=== PATIENT | male | born 1975 | race Caucasian/White ===

== ENCOUNTER → 2017-02-19 | Outpatient (CLI) | payer SELFPAY ==
[2017-02-19 18:50] LABS: Basophils # (A) 0.1 k/uL (0-0.2); Basophils % (A) 1 %; CH 31.2; CHCM 33.9; Eosinophils # (A) 0.7 k/uL (0-0.7); Eosinophils % (A) 6 %; HCT 49.8 % (39.0-53.0); HGB 16.7 gm/dL (13.0-17.5); Luc # (Auto) 0.18; Luc % (Auto) 2; Lymphocytes # (A) 3.5 k/uL (1.0-4.8); Lymphocytes % (A) 31 %; MCH 31.1 pg (25.0-35.0); MCHC 33.6 g/dL (31.0-37.0); MCV 92.4 fL (80.0-100.0); Monocytes # (A) 0.5 k/uL (0-1.0); Monocytes % (A) 4 %; Neutrophils # (A) 6.4 k/uL (1.3-7.7); Neutrophils % (A) 56 %; RBC 5.39 m/uL (4.30-5.90); RDW 13.1 % (11.5-15.5); WBC 11.3 k/uL (3.8-10.6); WBC (Perox) 11.54
[2017-02-19 19:02] LABS: ALT 37 U/L (21-72); AST 21 U/L (17-59); Alkaline Phosphatase 80 U/L (38-126); Anion Gap 11 mmol/L; Blood Urea Nitrogen 23 mg/dL (9-20); Calcium 9.3 mg/dL (8.4-10.2); Carbon Dioxide 22 mmol/L (22-30); Chloride 108 mmol/L (98-107); Cholesterol 205 mg/dL (<200); Glucose 98 mg/dL (74-99); HDL Cholesterol 42 mg/dL (40-60); Non-African American GFR(MDRD) >60 (>60 ml/min/1.73 sqM); Potassium 4.4 mmol/L (3.5-5.1); Sodium 141 mmol/L (137-145); Total Bilirubin 0.4 mg/dL (0.2-1.3); Total Protein 7.3 g/dL (6.3-8.2); Triglycerides 234 mg/dL (<150)
[2017-02-19 19:04] LABS: Rheumatoid Factor, Qnt <9 IU/mL (<12)
== END ==
LOC: MMGSC 17:14
PROVIDERS: ATTEND Family Medicine
DX: Z00.00 Encounter for general adult medical examination without abnormal findings (principal); N52.9 Male erectile dysfunction, unspecified
CPT/HCPCS: 36415; 80053; 80061; 84403; 84439; 84443; 85025; 86038; 86431

== ENCOUNTER → 2017-03-07 | Outpatient (CLI) | payer OTHER ==
--- NOTE | 2017-03-07 16:39 | XR ---
EXAMINATION TYPE: XR lumbar spine 2 or 3V DATE OF EXAM: 03/07/2017 4:27 PM COMPARISON: NONE HISTORY: Back pain TECHNIQUE: 3 views FINDINGS: Vertebra have normal spacing and alignment. Posterior elements are intact. Sacroiliac joint s appear normal. IMPRESSION: Normal lumbar spine.
--- NOTE | 2017-03-07 16:40 | XR ---
EXAMINATION TYPE: XR chest 2V DATE OF EXAM: 03/07/2017 4:27 PM COMPARISON: NONE HISTORY: Cough TECHNIQUE: Frontal and lateral views of the chest are obtained. FINDINGS: Heart and mediastinum are normal. Lungs are clear. Diaphragm is normal. Bony thorax is int act. There is a small linear density at the posterior lung base on the lateral view. IMPRESSION: Focal atelectasis at the right posterior lung base. Normal heart.
== END | disposition home or self-care (01) ==
LOC: RADXRMAIN 16:11
PROVIDERS: ATTEND Family Medicine
DX: J98.11 Atelectasis (principal); M54.5 Low back pain
CPT/HCPCS: 71020; 72100

== ENCOUNTER → 2017-06-24 | Outpatient (CLI) | payer OTHER ==
[2017-06-24 19:29] LABS: Hepatitis B Surface Ag Index 0.06
[2017-06-24 19:35] LABS: Hepatitis B Core IgM Index 0.04
[2017-06-24 19:46] LABS: Hepatitis C Virus IgG Ab Negative (Negative); Hepatitis C Virus IgG Index 0.02
[2017-06-25 01:01] LABS: Treponemal Ab Non-Reactive (Non-Reactive)
== END | disposition home or self-care (01) ==
LOC: MMGSC 16:57
PROVIDERS: ATTEND Family Medicine
DX: Z03.89 Encounter for observation for other suspected diseases and conditions ruled out (principal)
CPT/HCPCS: 36415; 80074; 86780; 87390; 87491; 87591

== ENCOUNTER 2018-01-06 07:33 | Observation (INO) | payer OTHER ==
[2018-01-06] MEDS ORDERED: ONDANSETRON 4 MG/2 ML VIAL IVP STA (08:03)
[2018-01-06] MEDS ORDERED: SODIUM CHLORIDE 0.9% 1,000 ML IV STA (08:03)
[2018-01-06 08:14] LABS: Basophils # (A) 0.1 k/uL (0-0.2); Basophils % (A) 1 %; Eosinophils # (A) 0.9 k/uL (0-0.7); Eosinophils % (A) 8 %; HCT 50.6 % (39.0-53.0); HGB 16.9 gm/dL (13.0-17.5); Lymphocytes # (A) 2.2 k/uL (1.0-4.8); Lymphocytes % (A) 20 %; MCH 29.9 pg (25.0-35.0); MCHC 33.3 g/dL (31.0-37.0); MCV 89.8 fL (80.0-100.0); Mean Platelet Volume 7.7; Monocytes # (A) 0.5 k/uL (0-1.0); Monocytes % (A) 4 %; Neutrophils # (A) 7.3 k/uL (1.3-7.7); Neutrophils % (A) 66 %; Platelet Count 284 k/uL (150-450); RBC 5.64 m/uL (4.30-5.90); RDW 12.8 % (11.5-15.5); WBC 11.1 k/uL (3.8-10.6)
[2018-01-06 08:28] LABS: ALT 32 U/L (21-72); AST 16 U/L (17-59); Albumin 4.2 g/dL (3.5-5.0); Alcohol <10 mg/dL; Alkaline Phosphatase 80 U/L (38-126); Amylase 58 U/L (30-110); Anion Gap 10 mmol/L; Blood Urea Nitrogen 22 mg/dL (9-20); Calcium 9.6 mg/dL (8.4-10.2); Carbon Dioxide 24 mmol/L (22-30); Chloride 108 mmol/L (98-107); Glucose 151 mg/dL (74-99); Lipase 91 U/L (23-300); Potassium 4.4 mmol/L (3.5-5.1); Sodium 142 mmol/L (137-145); Total Bilirubin 0.3 mg/dL (0.2-1.3); Total Protein 6.9 g/dL (6.3-8.2)
--- NOTE | 2018-01-06 08:33 | ED ---
Abdominal Pain HPI - General Chief Complaint: Abdominal Pain Stated Complaint: Abdominal pain Time Seen by Provider: 01/06/18 08:02 Source: patient, RN notes reviewed Mode of arrival: ambulatory Limitations: no limitations - History of Present Illness Initial Comments: 42-year-old male presents emergency Department with chief complaint of abdominal pain. Patient states that this has been present on and off for last few days. Patient states he's been nauseated with intermittent vomiting. Patient denies any fever or chills. Patient states the pain is in grandparents his abdomen is not localize. Patient denies as reflux. Patient denies any chest pain or shortness breath at this time. He does complain of left arm numbness but states his been ongoing that it comes and goes it's not constant and varies in location. Patient is right-hand dominant. Denies any focal weakness. Patient denies any dysuria, hematuria, diarrhea, constipation, melena or hematochezia. Patient denies any sick contacts. Patient did state the triage that he has had thoughts of suicide to wonder what it would be like states that he's never acted upon that he is not really suicidal - Related Data Home Medications Medication Instructions Recorded Confirmed No Known Home Medications [No 01/06/18 01/06/18 Known Home Medications] Allergies Allergy/AdvReac Type Severity Reaction Status Date / Time No Known Allergies Allergy Verified 01/06/18 08:23 Review of Systems ROS Statement: Those systems with pertinent positive or pertinent negative responses have been documented in the HPI. ROS Other: All systems not noted in ROS Statement are negative. Past Medical History Past Medical History: No Reported History History of Any Multi-Drug Resistant Organisms: None Reported Past Surgical History: No Surgical Hx Reported Past Psychological History: ADD/ADHD, Anxiety, Depression, Panic Disorder Smoking Status: Current every day smoker Past Alcohol Use History: Rare Past Drug Use History: None Reported General Exam Limitations: no limitations General appearance: alert, in no apparent distress Head exam: Present: atraumatic, normocephalic, normal inspection Eye exam: Present: normal appearance, PERRL, EOMI. Absent: scleral icterus, conjunctival injection, periorbital swelling ENT exam: Present: normal exam, normal oropharynx, mucous membranes moist, TM's normal bilaterally, normal external ear exam Neck exam: Present: normal inspection, full ROM. Absent: tenderness, meningismus, lymphadenopathy Respiratory exam: Present: normal lung sounds bilaterally. Absent: respiratory distress, wheezes, rales, rhonchi, stridor Cardiovascular Exam: Present: regular rate, normal rhythm, normal heart sounds. Absent: systolic murmur, diastolic murmur, rubs, gallop, clicks GI/Abdominal exam: Present: soft, tenderness (Mild diffuse), normal bowel sounds. Absent: distended, guarding, rebound, rigid Extremities exam: Present: normal inspection, full ROM, normal capillary refill , other (Neurovascular intact). Absent: tenderness, pedal edema, joint swelling , calf tenderness Back exam: Absent: CVA tenderness (R), CVA tenderness (L) Skin exam: Present: warm, dry, intact, normal color. Absent: rash Course Vital Signs 01/06/18 01/06/18 07:34 10:24 Temperature 97.4 F L Pulse Rate 106 H 85 Respiratory 18 18 Rate Blood Pressure 122/95 118/71 O2 Sat by Pulse 96 96 Oximetry Medical Decision Making - Medical Decision Making 42-year-old male present emergency department for abdominal pain. Patient CT shows possible early lymphoma, vasculitis or panniculitis. Patient will be admitted to medicine with consult surgery. Patient does have some underlying depression may need to see psych he is not currently suicidal he states that he' s had some thoughts in the past. - Lab Data Result diagrams: 01/06/18 08:02 01/06/18 08:02 Lab Results 01/06/18 01/06/18 01/06/18 Range/Units 08:02 08:02 08:02 WBC 11.1 H (3.8-10.6) k/uL RBC 5.64 (4.30-5.90) m/uL Hgb 16.9 (13.0-17.5) gm/dL Hct 50.6 (39.0-53.0) % MCV 89.8 (80.0-100.0) fL MCH 29.9 (25.0-35.0) pg MCHC 33.3 (31.0-37.0) g/dL RDW 12.8 (11.5-15.5) % Plt Count 284 (150-450) k/uL Neutrophils % 66 % Lymphocytes % 20 % Monocytes % 4 % Eosinophils % 8 % Basophils % 1 % Neutrophils # 7.3 (1.3-7.7) k/uL Lymphocytes # 2.2 (1.0-4.8) k/uL Monocytes # 0.5 (0-1.0) k/uL Eosinophils # 0.9 H (0-0.7) k/uL Basophils # 0.1 (0-0.2) k/uL Sodium 142 (137-145) mmol/L Potassium 4.4 (3.5-5.1) mmol/L Chloride 108 H (98-107) mmol/L Carbon Dioxide 24 (22-30) mmol/L Anion Gap 10 mmol/L BUN 22 H (9-20) mg/dL Creatinine 0.76 (0.66-1.25) mg/dL Est GFR (CKD-EPI)AfAm >90 (>60 ml/min/1.73 sqM) Est GFR (CKD-EPI)NonAf >90 (>60 ml/min/1.73 sqM) Glucose 151 H (74-99) mg/dL Calcium 9.6 (8.4-10.2) mg/dL Total Bilirubin 0.3 (0.2-1.3) mg/dL AST 16 L (17-59) U/L ALT 32 (21-72) U/L Alkaline Phosphatase 80 (38-126) U/L Total Creatine Kinase 61 (55-170) U/L CK-MB (CK-2) 0.6 (0.0-2.4) ng/mL CK-MB (CK-2) Rel Index 1.0 Troponin I <0.012 (0.000-0.034) ng/mL Total Protein 6.9 (6.3-8.2) g/dL Albumin 4.2 (3.5-5.0) g/dL Amylase 58 (30-110) U/L Lipase 91 (23-300) U/L Urine Color Urine Appearance (Clear) Urine pH (5.0-8.0) Ur Specific Cement (1.001-1.035) Urine Protein (Negative) Urine Glucose (UA) (Negative) Urine Ketones (Negative) Urine Blood (Negative) Urine Nitrite (Negative) Urine Bilirubin (Negative) Urine Urobilinogen (<2.0) mg/dL Ur Leukocyte Esterase (Negative) Urine Opiates Screen (NotDetected) Ur Oxycodone Screen (NotDetected) Urine Methadone Screen (NotDetected) Ur Propoxyphene Screen (NotDetected) Ur Barbiturates Screen (NotDetected) U Tricyclic Antidepress (NotDetected) Ur Phencyclidine Scrn (NotDetected) Ur Amphetamines Screen (NotDetected) U Methamphetamines Scrn (NotDetected) U Benzodiazepines Scrn (NotDetected) Urine Cocaine Screen (NotDetected) U Marijuana (THC) Screen (NotDetected) Serum Alcohol <10 mg/dL 01/06/18 Range/Units 08:08 WBC (3.8-10.6) k/uL RBC (4.30-5.90) m/uL Hgb (13.0-17.5) gm/dL Hct (39.0-53.0) % MCV (80.0-100.0) fL MCH (25.0-35.0) pg MCHC (31.0-37.0) g/dL RDW (11.5-15.5) % Plt Count (150-450) k/uL Neutrophils % % Lymphocytes % % Monocytes % % Eosinophils % % Basophils % % Neutrophils # (1.3-7.7) k/uL Lymphocytes # (1.0-4.8) k/uL Monocytes # (0-1.0) k/uL Eosinophils # (0-0.7) k/uL Basophils # (0-0.2) k/uL Sodium (137-145) mmol/L Potassium (3.5-5.1) mmol/L Chloride (98-107) mmol/L Carbon Dioxide (22-30) mmol/L Anion Gap mmol/L BUN (9-20) mg/dL Creatinine (0.66-1.25) mg/dL Est GFR (CKD-EPI)AfAm (>60 ml/min/1.73 sqM) Est GFR (CKD-EPI)NonAf (>60 ml/min/1.73 sqM) Glucose (74-99) mg/dL Calcium (8.4-10.2) mg/dL Total Bilirubin (0.2-1.3) mg/dL AST (17-59) U/L ALT (21-72) U/L Alkaline Phosphatase (38-126) U/L Total Creatine Kinase (55-170) U/L CK-MB (CK-2) (0.0-2.4) ng/mL CK-MB (CK-2) Rel Index Troponin I (0.000-0.034) ng/mL Total Protein (6.3-8.2) g/dL Albumin (3.5-5.0) g/dL Amylase (30-110) U/L Lipase (23-300) U/L Urine Color Yellow Urine Appearance Clear (Clear) Urine pH 6.0 (5.0-8.0) Ur Specific Cement 1.024 (1.001-1.035) Urine Protein Negative (Negative) Urine Glucose (UA) Negative (Negative) Urine Ketones Negative (Negative) Urine Blood Negative (Negative) Urine Nitrite Negative (Negative) Urine Bilirubin Negative (Negative) Urine Urobilinogen <2.0 (<2.0) mg/dL Ur Leukocyte Esterase Negative (Negative) Urine Opiates Screen Not Detected (NotDetected) Ur Oxycodone Screen Not Detected (NotDetected) Urine Methadone Screen Not Detected (NotDetected) Ur Propoxyphene Screen Not Detected (NotDetected) Ur Barbiturates Screen Not Detected (NotDetected) U Tricyclic Antidepress Not Detected (NotDetected) Ur Phencyclidine Scrn Not Detected (NotDetected) Ur Amphetamines Screen Not Detected (NotDetected) U Methamphetamines Scrn Not Detected (NotDetected) U Benzodiazepines Scrn Not Detected (NotDetected) Urine Cocaine Screen Not Detected (NotDetected) U Marijuana (THC) Screen Not Detected (NotDetected) Serum Alcohol mg/dL - EKG Data EKG Comments: EKG performed at 8:17 normal sinus rhythm with rate 93 IL 112 QRS 88 QT/QTC 320/ 397 Disposition Clinical Impression: Abdominal pain, Panniculitis, Vasculitis, Nausea & vomiting, Depression Disposition: ADMITTED IP TO THIS [facility] Condition: Stable Referrals: Jeannine Reina MD [Primary Care Provider] - 1-2 days
[2018-01-06 08:34] LABS: Creatine Kinase 61 U/L (55-170)
[2018-01-06 08:40] LABS: Appearance,Urine Clear (Clear); Bilirubin,Urine Negative (Negative); Blood,Urine Negative (Negative); Color,Urine Yellow; Glucose,Urine (UA) Negative (Negative); Ketones,Urine Negative (Negative); Leukocyte Esterase,Urine Negative (Negative); Nitrite,Urine Negative (Negative); Protein,Urine Negative (Negative); Specific Gravity,Urine 1.024 (1.001-1.035); Urobilinogen,Urine <2.0 mg/dL (<2.0)
[2018-01-06 08:47] LABS: Creatine Kinase MB 0.6 ng/mL (0.0-2.4); Troponin I <0.012 ng/mL (0.000-0.034)
[2018-01-06 08:50] LABS: Amphetamine Screen,Urine Not Detected (NotDetected); Barbiturate Screen,Urine Not Detected (NotDetected); Benzodiazepines Screen,Urine Not Detected (NotDetected); Cocaine Screen,Urine Not Detected (NotDetected); Methadone Screen, Urine Not Detected (NotDetected); Opiate Screen,Urine Not Detected (NotDetected); Oxycodone Screen, Urine Not Detected (NotDetected); Phencyclidine Screen,Urine Not Detected (NotDetected); Tricyclic Antidepressant,Urine Not Detected (NotDetected); Urn Cannabinoid Scrn Not Detected (NotDetected)
[2018-01-06] MEDS ORDERED: RX INFO: IV CONTRAST WAS GIVEN 1 EACH MISC MISCELLANE PRN (08:51)
--- NOTE | 2018-01-06 10:00 | CT ---
EXAMINATION TYPE: CT abdomen pelvis w con DATE OF EXAM: 01/06/2018 COMPARISON: NONE HISTORY: 42-year-old male with abdominal pain, vomiting TECHNIQUE: Contiguous axial scanning of the abdomen and pelvis following administration of 100 ml Omn ipaque 300 IV contrast. Delayed images through the kidneys and coronal/sagittal reconstructions perf ormed. CT DLP: 1069.5 mGycm Automated exposure control for dose reduction was used. FINDINGS: Heart is normal size without pericardial effusion. Calcified granuloma posterior right lower lobe. St bret dependent atelectasis posterior left lower lobe. Subcentimeter hypodensity anterior mid liver to small fractured CT characterization, probable cyst. Liver mildly enlarged at 17.3 cm craniocaudal. There is slight heterogeneous low density appearance t o the liver which could reflect hepatitis or fatty infiltration and should be correlated clinically. Portal venous system is patent. No biliary ductal dilatation. Gallbladder, right adrenal gland, right kidney, and pancreas appear within normal limits. Subcentimet er hypodensity medial upper pole right kidney too small for accurate CT characterization, likely cyst . Spleen shows an inferior hilar splenule and is upper limits of normal in size at 13.6 cm craniocaudal , coronal image 64. Mild thickening of the left adrenal gland without discrete nodularity. No dilated small bowel, free fluid, or free air. There may be mild wall thickening of jejunal loops in the left abdomen. There is focal soft tissue thickening along left upper to mid abdominal mesenteric vessels, refer to axial image 28 and coronal image 38. Otherwise, no mesenteric or retroperitoneal lymphadenopathy. Normal appendix. Mild stool burden. No pericolonic inflammatory change. Bladder is urine distended. No abnormal fluid collection in the pelvis or pelvic lymphadenopathy. Bones: Facet arthropathy lower lumbar spine and mild degenerative disc disease lower thoracic spine. No osseous destructive process. IMPRESSION: 1. PERIVASCULAR SOFT TISSUE THICKENING INVOLVING MESENTERIC VESSELS TO THE LEFT UPPER AND MID ABDOMEN (AXIAL IMAGE 28, CORONAL IMAGE 38). A MEDIUM VESSEL VASCULITIS, MESENTERIC PANNICULITIS, AND EARLY L YMPHOMA ARE SOME DIFFERENTIAL CONSIDERATIONS. FURTHER CLINICAL EVALUATION AND FOLLOW-UP IN 3 MONTHS I S RECOMMENDED. 2. MILD HEPATOMEGALY. SLIGHTLY HETEROGENEOUS ENHANCEMENT OF THE LIVER COULD REFLECT UNDERLYING FATTY INFILTRATION OR HEPATITIS. CORRELATE WITH LFT's, LIPID PROFILE, AND PATIENT RISK FACTORS.
[2018-01-06] MEDS ORDERED: KETOROLAC 30 MG/ML 1 ML VIAL IVP STA (10:30)
[2018-01-06] MEDS ORDERED: ONDANSETRON 4 MG/2 ML VIAL IVP PRN (10:34)
[2018-01-06] MEDS ORDERED: ACETAMINOPHEN TAB 325 MG TAB PO PRN (10:34)
--- NOTE | 2018-01-06 12:05 | P.HPIM ---
History of Present Illness H&P Date: 01/06/18 Chief Complaint: Abdominal pain nausea vomiting 42-year-old male with no past medical history presents emergency Department with chief complaint of abdominal pain for the last 5 days. Patient states that this has been present intermittently since Wednesday. Patient states he's been nauseated with intermittent vomiting. Patient denies any fever or chills. Patient states the pain is generalized and poorly localized often with radiation to his back. Patient denies as reflux. Patient denies any chest pain or shortness breath at this time. He does complain of left arm numbness but states his been ongoing that it comes and goes it's not constant and varies in location. Patient is right-hand dominant. Denies any focal weakness. Patient denies any dysuria, hematuria, diarrhea, constipation, melena or hematochezia. Patient denies any sick contacts. The patient reports increasing anorexia since Wednesday with a 10-12 pound weight loss also reporting subjective fevers and chills. He does have a family history of breast cancer in his mother. The patient has a 30+ pack year history. Patient did state the triage that he has had thoughts of suicide to wonder what it would be like states that he's never acted upon that he is not really suicidal. Review of Systems All other 14 point review of systems negative except per HPI Past Medical History Past Medical History: No Reported History History of Any Multi-Drug Resistant Organisms: None Reported Past Surgical History: No Surgical Hx Reported Past Psychological History: ADD/ADHD, Anxiety, Depression, Panic Disorder Smoking Status: Current every day smoker Past Alcohol Use History: Rare Past Drug Use History: None Reported - Past Family History Father Family Medical History: Coronary Artery Disease (CAD), Hypertension, Renal Disease Additional Family Medical History / Comment(s): Father has CKD and they are talking of starting him on dialysis. Mother Family Medical History: Cancer Additional Family Medical History / Comment(s): Mother of breast cancer with mets. Medications and Allergies Home Medications Medication Instructions Recorded Confirmed Type No Known Home Medications [No 01/06/18 01/06/18 History Known Home Medications] Allergies Allergy/AdvReac Type Severity Reaction Status Date / Time No Known Allergies Allergy Verified 01/06/18 08:23 Physical Exam Vitals: Vital Signs Temp Pulse Resp BP Pulse Ox 01/06/18 10:24 85 18 118/71 96 01/06/18 07:34 97.4 F L 106 H 18 122/95 96 Intake and Output 01/05/18 01/06/18 01/06/18 22:59 06:59 14:59 Other: Weight 88.451 kg Constitutional: No acute distress, conversant, pleasant Eyes: Anicteric sclerae, moist conjunctiva, no lid-lag, PERRLA ENMT: NC/AT,Oropharynx clear, no erythema, exudates Neck:Supple, FROM, no masses, or JVD, No carotid bruits; No thyromegaly Lungs: Clear to auscultation, Clear to percussion, Normal respiratory effort, no accessory muscle use Cardiovascular: Heart regular in rate and rhythm, No murmurs, gallops, or rubs no peripheral edema Abdominal: Soft tender to palpation diffusely, non distended, no guarding, no rebound or rigidity, Normoactive bowel sounds No hepatomegaly, No splenomegaly , No palpable mass No abdominal wall hernia noted Skin: Normal temperature, tone, texture, turgor, No induration No subcutaneous nodules, No rash, lesions, No ulcers Extremities:No digital cyanosis No clubbing, Pedal pulses intact and symmetrical Radial pulses intact and symmetrical Normal gait and station, No calf tenderness Psychiatric: Alert and oriented to person, place and time, Appropriate affect Intact judgement Neuro: Muscles Strength 5/5 in all 4 extremities, Sensation to light touch grossly present throughout, Cranial nerves II-XII grossly intact. No focal sensory deficits Results CBC & Chem 7: 01/06/18 08:02 01/06/18 08:02 Labs: Abnormal Lab Results - Last 24 Hours (Table) 01/06/18 01/06/18 Range/Units 08:02 08:02 WBC 11.1 H (3.8-10.6) k/uL Eosinophils # 0.9 H (0-0.7) k/uL Chloride 108 H (98-107) mmol/L BUN 22 H (9-20) mg/dL Glucose 151 H (74-99) mg/dL AST 16 L (17-59) U/L CT scan - abdomen: report reviewed (Perivascular soft tissues thickening involving the mesenteric vessels to the left upper and mid abdomen. Differential includes a medium vessel vasculitis, mesenteric panniculitis and early lymphoma. Follow-up in 3 months recommended) Assessment and Plan (1) Abdominal pain Current Visit: Yes Status: Acute Code(s): R10.9 - UNSPECIFIED ABDOMINAL PAIN SNOMED Code(s): 87112423 (2) Nausea & vomiting Current Visit: Yes Status: Acute Code(s): R11.2 - NAUSEA WITH VOMITING, UNSPECIFIED SNOMED Code(s): 36107385 (3) Depression Current Visit: Yes Status: Acute Code(s): F32.9 - MAJOR DEPRESSIVE DISORDER , SINGLE EPISODE, UNSPECIFIED SNOMED Code(s): 38073480 (4) Smoking Current Visit: Yes Status: Acute Code(s): F17.200 - NICOTINE DEPENDENCE, UNSPECIFIED, UNCOMPLICATED SNOMED Code(s): 28006682 Plan: The patient is placed on observation anticipated less than 2 midnight stay with abdominal pain and nausea and vomiting, with a nonsurgical abdomen at this time. CT abdomen and pelvis suggesting lymphoma versus vasculitis versus panniculitis , will consult general surgery for further recommendations, treat supportively with antiemetics and IV morphine, the patient does have a mild leukocytosis but has been afebrile. If He does become febrile will add broad- spectrum antibiotics. We'll also consult psychiatry regarding his depression. We'll continue to follow his clinical course
[2018-01-06] MEDS: SODIUM CHLORIDE 0.9% 1,000 ML IV SCH (14:03)
[2018-01-06] MEDS: NICOTINE 14MG/24HR PATCH TRANSDERM SCH (14:03)
[2018-01-06 14:08] VITALS: BMI 27.1
[2018-01-06] MEDS: MORPHINE SULFATE 4 MG/ML SYRINGE IVP PRN ×2 (16:40→22:14)
[2018-01-07 01:47] VITALS: RESP 16
[2018-01-07] MEDS: SODIUM CHLORIDE 0.9% 1,000 ML IV SCH ×3 (03:14→13:03)
[2018-01-07] MEDS: NICOTINE 14MG/24HR PATCH TRANSDERM SCH (08:30)
[2018-01-07] MEDS: MORPHINE SULFATE 4 MG/ML SYRINGE IVP PRN ×2 (08:30→14:25)
--- NOTE | 2018-01-07 09:42 | P.GSCN ---
History of Present Illness Consult date: 01/07/18 Reason for Consult: Abdominal pain History of present illness: 42-year-old male presented on the day of admission to the emergency room with a chief complaint of persistent abdominal pain onset Wednesday. Given the above clinical presentation a surgical eval was requested. Patients being seen this morning and states that the abdominal pain is in the bilateral lower abdominal area points to this areas as to the reference point. states it's constant sometimes it's not as bad and other times it's very intense as if somebody is "stabbing me". Patient denies any change in bowel habits any burning on urination frequency urgency. No blood in stool. No hematuria. Patient denied any fever chills. CAT scan abdomen pelvis with contrast done in the emergency room reviewing the report showed mild hepatomegaly. Medium vessel vasculitis, mesenteric panniculitis an early lymphoma are some differentials to be considered. Patient 's abdomen is flat not distended mild tenderness bilateral lower abdomen no facial grimacing with palpitation to the abdominal wall tolerating a clear liquid diet with no nausea no vomiting no stool No acute finding. Patient has no surgical history and no significant past medical history Denies alcohol use Review of Systems All systems: negative - EENT Eyes: denies blurred vision, denies bulging eye, denies decreased vision, denies diplopia, denies discharge, denies dry eye, denies irritation, denies itching, denies pain, denies photophobia, denies loss of peripheral vision, denies loss of vision, denies tunnel vision/blind spots Ears: deny: decreased hearing, ear discharge, earache, tinnitus Ears, nose, mouth and throat: Reports as per HPI - Cardiovascular Denies chest pain, Denies shortness of breath Past Medical History Past Medical History: No Reported History History of Any Multi-Drug Resistant Organisms: None Reported Past Surgical History: No Surgical Hx Reported Past Anesthesia/Blood Transfusion Reactions: Unable to Obtain Additional Past Anesthesia/Blood Transfusion Reaction / Comm: Pt has never had anesthesia. Past Psychological History: ADD/ADHD, Anxiety, Depression, Panic Disorder Smoking Status: Current every day smoker Past Alcohol Use History: Rare Past Drug Use History: None Reported - Past Family History Father Family Medical History: Coronary Artery Disease (CAD), Hypertension, Renal Disease Additional Family Medical History / Comment(s): Father has CKD and they are talking of starting him on dialysis. Mother Family Medical History: Cancer Additional Family Medical History / Comment(s): Mother of breast cancer with mets. Medications and Allergies Home Medications Medication Instructions Recorded Confirmed Type No Known Home Medications [No 01/06/18 01/06/18 History Known Home Medications] Allergies Allergy/AdvReac Type Severity Reaction Status Date / Time No Known Allergies Allergy Verified 01/06/18 08:23 Surgical - Exam Vital Signs Temp Pulse Resp BP Pulse Ox 97.4 F L 106 H 18 122/95 96 01/06/18 07:34 01/06/18 07:34 01/06/18 07:34 01/06/18 07:34 01/06/18 07:34 GENERAL APPEARANCE: 42-year-old male resting comfortably in bed and just received pain medication currently denying abdominal pain when questioning patient is alert, oriented, in no acute distress. VITAL SIGNS: Reviewed HEENT: Head is normocephalic and atraumatic. Pupils are equal and reactive. The nares are patent. Oropharynx is clear without lesions. NECK: Supple without lymphadenopathy. Traches midline. HEART: S1, S2. Regular rate and rhythm. No murmur noted denying chest pain LUNGS: No crackles or wheezes are heard. Adequate air movement bilaterally no cough noted no shortness of breath noted ABDOMEN: Soft, nontender, nondistended with good bowel sounds. No peritoneal signs. No palpable organomegaly or masses. No nausea no vomiting no difficulty in urinating no stool tolerating clear liquid diet EXTREMITIES: Normal skin color and turgor. No cyanosis, rash, ulceration, clubbing or edema. Radial pedal pulses are 2/4 bilaterally. NEUROLOGICAL: No focal deficits. Strength and sensation are grossly intact. Results - Labs 01/06/18 08:02 01/06/18 08:02 Assessment and Plan Assessment: Impression Present on admission abdominal pain with a CAT scan abdomen showing perivascular soft tissue thickening involving mesenteric vessels to the left upper and mid abdomen Depressive disorder nonspecified The current active smoker Present on admission abdominal pain with nausea vomiting Present on admission mild leukocytosis afebrile suspect reactive Plan No evidence of an acute surgical abdomen IV fluid for hydration Monitor labs Anti-emetics as ordered Pain control Will follow with you with further surgical recommendations Check hepatitis panel Surgical consultation note dictated for dr maxwell The above impression and plan of care have been discussed and directed by signing physician. Marilyn Denny nurse practitioner acting as scribe for signing physician.
--- NOTE | 2018-01-07 12:26 | XR ---
EXAMINATION TYPE: XR chest 2V DATE OF EXAM: 01/07/2018 COMPARISON: 03/07/2017 HISTORY: Chest pain TECHNIQUE: Frontal and lateral views of the chest are obtained. FINDINGS: There is no focal air space opacity. No evidence for pneumothorax. No pleural effusion. The cardiac silhouette size is within normal limits. The osseous structures are grossly intact. IMPRESSION: 1. No acute cardiopulmonary process.
--- NOTE | 2018-01-07 13:59 | P.PN ---
Subjective Progress Note Date: 01/07/18 Patient reporting resolution of his nausea and only reporting minimal abdominal pain today. Otherwise no fevers afebrile no acute events overnight Objective - Vital Signs Vital signs: Vital Signs Temp 98.4 F 01/07/18 08:18 Pulse 86 01/07/18 08:18 Resp 16 01/07/18 08:18 BP 118/74 01/07/18 08:18 Pulse Ox 93 L 01/07/18 08:18 Intake & Output 01/06/18 01/07/18 01/07/18 18:59 06:59 18:59 Intake Total 1340 100 Balance 1340 100 Weight 88.451 kg Intake: Intake, IV Titration 1100 Amount Sodium Chloride 0.9% 1, 1100 000 ml @ 100 mls/hr IV . Q10H [facility] Rx#:[id number] Oral 240 100 Other: Voiding Method Toilet # Voids 1 1 1 - Exam Constitutional: No acute distress, conversant, pleasant Eyes: Anicteric sclerae, moist conjunctiva, no lid-lag, PERRLA ENMT: NC/AT,Oropharynx clear, no erythema, exudates Neck:Supple, FROM, no masses, or JVD, No carotid bruits; No thyromegaly Lungs: Clear to auscultation, Clear to percussion, Normal respiratory effort, no accessory muscle use Cardiovascular: Heart regular in rate and rhythm, No murmurs, gallops, or rubs no peripheral edema Abdominal: Soft Nontender, nom distended, no guarding, no rebound or rigidity, Normoactive bowel sounds No hepatomegaly, No splenomegaly, No palpable mass No abdominal wall hernia noted Skin: Normal temperature, tone, texture, turgor, No induration No subcutaneous nodules, No rash, lesions, No ulcers Extremities:No digital cyanosis No clubbing, Pedal pulses intact and symmetrical Radial pulses intact and symmetrical Normal gait and station, No calf tenderness Psychiatric: Alert and oriented to person, place and time, Appropriate affect Intact judgement Neuro: Muscles Strength 5/5 in all 4 extremities, Sensation to light touch grossly present throughout, Cranial nerves II-XII grossly intact. No focal sensory deficits - Labs CBC & Chem 7: 01/06/18 08:02 01/06/18 08:02 Assessment and Plan (1) Abdominal pain Narrative/Plan: * CT abdomen and pelvis suggesting lymphoma versus vasculitis versus panniculitis * Patient had a mild leukocytosis we'll check a CBC today, he has been afebrile since admission on likely to need antibiotics, and possibly some viral-type infection * Gen. surgery has been consulted awaiting further recommendations * We'll also consult hematology oncology for further recommendations Current Visit: Yes Status: Acute Code(s): R10.9 - UNSPECIFIED ABDOMINAL PAIN SNOMED Code(s): 50171447 (2) Nausea & vomiting Current Visit: Yes Status: Resolved Code(s): R11.2 - NAUSEA WITH VOMITING, UNSPECIFIED SNOMED Code(s): 35324102 (3) Depression Current Visit: Yes Status: Acute Code(s): F32.9 - MAJOR DEPRESSIVE DISORDER , SINGLE EPISODE, UNSPECIFIED SNOMED Code(s): 11869425 (4) Smoking Current Visit: Yes Status: Acute Code(s): F17.200 - NICOTINE DEPENDENCE, UNSPECIFIED, UNCOMPLICATED SNOMED Code(s): 89588601 Plan: The patient is placed on observation anticipated less than 2 midnight stay with abdominal pain and nausea and vomiting, with a nonsurgical abdomen at this time. , will consult general surgery for further recommendations, treat supportively with antiemetics and IV morphine, the patient does have a mild leukocytosis but has been afebrile. If He does become febrile will add broad-spectrum antibiotics. We'll also consult psychiatry regarding his depression. We'll continue to follow his clinical course
--- NOTE | 2018-01-07 14:38 | P.CN ---
Psychiatric Consult - . Consult date: 01/07/18 Consult:: 01/07/18 14:28 Identification: Patient is a 42-year-old male presented to the hospital with complaints of abdominal pains last 5 days, nausea and vomiting and decreased appetite. Reason for Consult: Consultation was requested for depression History of Present Illness: Patient's chart was reviewed, I spoke with the patient in his room no other members were present initially his fiance was present at the end of the interview. Patient states that he is not currently depressed and wondered why a psychiatric consultation was requested. He reported to me that he is not feeling depressed nor has he had any current suicidal thoughts. He states in 2013 was going through a contentious divorce he was treated for symptoms of anxiety, not being able to sleep or eat well by his family physician. He states at that time he had suicidal thoughts but had never made any plans and had no intent to act. He states his primary care physician gave him Vyvanse and Xanax and he took them for 6 months and received no psychiatric counseling and stopped the medications. He states that he has had suicidal thoughts in the past with no plan or intent to act when he's been upset or very sad. He reports that he has never made a suicide attempt and has never had any intention to act on his thoughts nor has he ever thought about how to commit suicide. States that several weeks ago he had a difficult visit with his 13-year-old daughter. The 2 of them were arguing about his insisting she take a shower and the 2 of them have not spoken for the last month nor have they visited with each other. He states this was their first big argument and it was upsetting to him. Patient is currently anxious regarding his current medical situation but states he is not depressed and not suicidal. Patient does not endorse a history of manic symptoms, anxiety symptoms OCD symptoms. Patient has never had any symptoms of a psychotic disorder. Patient states that the only time he was in treatment was during a contentious divorce. Past Psychiatric History: Patient has no inpatient psychiatric history has never been seen by a psychiatrist and was treated by his primary care physician for symptoms of anxiety and depression during a contentious divorce Past Medical/Surgical History: Patient states that he has no current medical problems and no prior surgical history Family History: Patient is unaware of any psychiatric history in the family and states his father used alcohol when he was much younger but stopped many years ago. There is no history of completed suicides in the family Social History: Patient was born in [place] and raised in [place] and return to [place] he was 18 years of age. His parents were and his mother in 2008, his father is alive. Patient has 2 brothers and 4 sisters all of whom he is in contact with. Patient has been on 3 occasions in the past. He was from his first 2 wives and states that he is from his third but not yet . He has a 13-year-old daughter from his second marriage. He is currently living with his fiance. 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 Patient states his daughter visits every other weekend and his fiance's son is with them 50% of the time. Patient denies any abuse history. Substance Use History: Patient states he drinks 3 beers a year and has never used any drugs in the past or currently and states he's never used more alcohol than that in the past. Patient does smoke cigarettes. Legal History: Patient denies any legal history. Mental status: Appearance/Attitude: Patient is lying in a hospital bed in no acute distress, makes good eye contact and is cooperative Behavior: Patient does not exhibit any psychomotor agitation or retardation. Speech/Language: Patient's speech is spontaneous and normal volume and rhythm and he is coherent. Thought Process: Patient is goal-directed there is no evidence of circumstantial or tangential thought and he is not exhibiting any loose associations or flight of ideas Thought Content: Patient denies any auditory or visual hallucinations, no evidence of paranoid or delusional ideation. Patient states that he is anxious about his current medical problem. He reports that his appetite has improved and he is actually feeling hungry now. Patient denied feeling hopeless and helpless or despondent. Patient is anxious about a recent argument that he had with his daughter and their lack of communication over the last several weeks. Suicidal/Homicidal Ideation: Patient denies any current suicidal or homicidal ideation. Sensorium/Cognition: Patient is alert and oriented to person, place, and time and his recent and remote memory are grossly intact. Mood/Affect: Patient's mood is pleasant, slightly anxious and his affect is appropriate Insight/Judgment: Patient's insight and judgment are intact Assessment: Patient reports that he is anxious about his current medical condition, states that he also recently had his first big argument with his 13- year-old daughter and is upset that she has not visited him again and they have not been able to speak on the phone. Patient adamantly denies any current suicidal ideation and states that he has had suicidal thoughts in the past when he has been upset and sad but is never thought of a plan and has never had any intent to act nor any wish to act. Patient states that he is currently not depressed and was surprised by the request for a consultation. Diagnosis: No current psychiatric diagnosis Plan: Patient is currently not expressing any depressive symptoms, is not endorsing any symptoms of alverto, psychosis or anxiety. Patient states that he has had the past thoughts of suicide without a plan or intent to act but is not currently having any suicidal ideation. Patient states he is anxious about his current medical problems as there is no answer as to why he was having the abdominal pain. At this time I see no reason to begin any psychotropic medication. I will sign off the case if there are any further questions or concerns please don't hesitate to contact me.
[2018-01-07 14:42] LABS: Basophils # (A) 0.1 k/uL (0-0.2); Basophils % (A) 1 %; Eosinophils % (A) 11 %; HCT 47.1 % (39.0-53.0); HGB 15.6 gm/dL (13.0-17.5); Lymphocytes # (A) 2.6 k/uL (1.0-4.8); Lymphocytes % (A) 26 %; MCH 29.9 pg (25.0-35.0); MCHC 33.1 g/dL (31.0-37.0); MCV 90.4 fL (80.0-100.0); Mean Platelet Volume 7.6; Monocytes # (A) 0.3 k/uL (0-1.0); Monocytes % (A) 3 %; Neutrophils # (A) 5.7 k/uL (1.3-7.7); Neutrophils % (A) 58 %; Platelet Count 258 k/uL (150-450); RBC 5.21 m/uL (4.30-5.90); RDW 12.7 % (11.5-15.5); WBC 9.8 k/uL (3.8-10.6)
[2018-01-07 14:58] LABS: ALT 25 U/L (21-72); AST 17 U/L (17-59); Albumin 3.7 g/dL (3.5-5.0); Alkaline Phosphatase 71 U/L (38-126); Anion Gap 6 mmol/L; Blood Urea Nitrogen 12 mg/dL (9-20); Carbon Dioxide 28 mmol/L (22-30); Chloride 107 mmol/L (98-107); Glucose 118 mg/dL (74-99); Potassium 4.4 mmol/L (3.5-5.1); Sodium 141 mmol/L (137-145); Total Bilirubin 0.2 mg/dL (0.2-1.3); Total Protein 6.3 g/dL (6.3-8.2)
[2018-01-07] MEDS ORDERED: RX INFO: IV CONTRAST WAS GIVEN 1 EACH MISC MISCELLANE PRN (16:16)
[2018-01-07 17:19] LABS: Hepatitis A Antibody IgM Non-Reactive (Non-Reactive); Hepatitis B Core IgM Non-Reactive (Non-Reactive)
[2018-01-07] MEDS: HYDROcodone/APAP 5-325MG 1 EACH TAB PO PRN (19:50)
[2018-01-07] MEDS ORDERED: MORPHINE ORAL SOLN 10 MG/5 ML CUP PO PRN (20:06)
--- NOTE | 2018-01-07 22:21 | CT ---
EXAMINATION TYPE: CT chest w con DATE OF EXAM: 01/07/2018 COMPARISON: NONE HISTORY: Adenopathy CT DLP: 665 mGycm. Automated exposure control for dose reduction was used. CONTRAST: CT scan of the chest is performed; patient injected intravenously with 100 mL of Omnipaque 300. FINDINGS: AIRWAYS: Negative. LUNG PARENCHYMA: There is hyperinflation, with attenuation of upper lobe vasculature consistent with emphysematous changes, moderate degree for patient's age. In the superior segment of the right lower lobe posteriorly there is ar 7.5 mm rounded calcification, consistent with healed granuloma. Bilatera l scattered linear bands of added opacity are noted, consistent with parenchymal scarring which is mo re prominent on the left PLEURAL SPACES: Negative. MEDIASTINUM: No pericardial effusion. No cardiomegaly. No coronary calcifications. Great vasculature unremarkable. No mediastinal adenopathy, but 1 cm mean diameter bilateral hilar nodes are noted. VISUALIZED EXTRATHORACIC STRUCTURES: No axillary or supraclavicular adenopathy. No other findings. SKELETAL STRUCTURES: Unremarkable. IMPRESSION: 1. MODERATE EMPHYSEMATOUS CHANGES AND PARENCHYMAL SCARRING. 2. BILATERAL 1 CM HILAR LYMPH NODES.
[2018-01-08 02:02] LABS: Rheumatoid Factor <4 IU/mL (0-15)
[2018-01-08 07:13] VITALS: BP 106/68; PULSE 74; TEMP 98
[2018-01-08] MEDS: SODIUM CHLORIDE 0.9% 1,000 ML IV SCH ×2 (07:16→11:49)
[2018-01-08] MEDS: NICOTINE 14MG/24HR PATCH TRANSDERM SCH (08:47)
[2018-01-08] MEDS: HYDROcodone/APAP 5-325MG 1 EACH TAB PO PRN (08:48)
--- NOTE | 2018-01-08 10:57 | P.PN ---
Progress Note - Text Progress Note Date: 01/08/18 The patient has no complaints this morning. He is tolerating regular diet. He has no abdominal pain. On exam is lesser stable. His evidence soft. Patient will be discharged home today. He'll follow up with myself in one week.
--- NOTE | 2018-01-08 12:33 | P.DS ---
Providers Date of admission: 01/06/18 10:34 Expected date of discharge: 01/08/18 Attending physician: Arsenio Boateng MD Consults: 01/06/18 12:07 Consult Physician Routine Consulting Provider: Angelito Ashraf Consult Reason/Comments: Abdominal pain Do you want consulting provider notified?: Yes 01/06/18 12:40 Consult Physician Routine Consulting Provider: Aneta Oshea Consult Reason/Comments: depression Do you want consulting provider notified?: Yes 01/07/18 13:40 Consult Physician Routine Consulting Provider: Joaquin Rodriguez Consult Reason/Comments: evaluate and treat if indicated Do you want consulting provider notified?: Yes Primary care physician: Jeannine Reina - Discharge Diagnosis(es) (1) Abdominal pain Current Visit: Yes Status: Acute (2) Nausea & vomiting Current Visit: Yes Status: Resolved (3) Smoking Current Visit: Yes Status: Acute (4) Verbalizes suicidal thoughts Current Visit: Yes Status: Acute Hospital Course: The patient is a 42-year-old male that presented with abdominal painin observation after his CT abdomen and pelvis showed perivascular soft tissue thickening involving the mesenteric vessels with a differential including medium vessel vasculitis, versus panniculitis versus early lymphoma. In general surgery Dr. Ashraf and Dr. Rodriguez with oncology were consulted. The patient was evaluated by general surgery and it was determined the patient had a nonsurgical abdomen at the patient had initially been made nothing by mouth and treated with antiemetics and IV morphine, his diet was advanced and he was tolerating a regular diet at time of discharge. Computed tomography scan of the chest dated suggest emphysematous changes with bilateral hilar lymphadenopathy at 1 cm. The patient was instructed to follow up with and his PCP in 1 week. The patient will likely need a pulmonary consult in the outpatient setting and monitoring with repeat CT scans the next 3 -6 months. The patient is stable at discharge today and is asymptomatic. This discharge process took approximately 25 minutes. Patient Condition at Discharge: Stable Plan - Discharge Summary Discharge Rx Participant: No New Discharge Prescriptions: Continue No Known Home Medications [No Known Home Medications] Discharge Medication List No Known Home Medications [No Known Home Medications] 01/06/18 [History] Follow up Appointment(s)/Referral(s): Jeannine Reina MD [Primary Care Provider] - 1-2 days Angelito Ashraf MD [STAFF PHYSICIAN] - 1 Week Discharge Disposition: HOME SELF-CARE
--- NOTE | 2018-01-11 00:01 | P.CONS ---
History of Present Illness - Reason for Consult Consult date: 01/07/[address] Requesting physician: Olayinka Borden - Chief Complaint Abdominal Pain - History of Present Illness 42-year-old male who denies any past medical history presents to ED with complaints of abdominal pain over the past few weeks Associated intermittent nausea and vomiting, no diarrhea. Patient denies any fever or chills. Pain is located in lower abdomen, intermittent. The patient is a current 30+ pack year history. A Ct scan revealed a soft tissue thickening the mesenteric vessels in the mid and left upper abdomen. These findings were concerning for differentials including an early stage lymphoma, therefore Oncology has been consulted. Fiance at bedside during time of consultation. He denies any abdominal pain in the area of upper and/or mid abdomen, pain is located in lower bilateral pelvis and radiates more to lower back. Review of Systems A 14 point review of systems assessed and completed and all negative except lower abdominal pain, nausea, and intermitted vomiting. He does also state he has had a recent 10LB weight loss, unintended All systems: negative Constitutional: Denies chills, Denies fever Eyes: denies blurred vision, denies pain Ears, nose, mouth and throat: Denies headache, Denies sore throat Cardiovascular: Denies chest pain, Denies shortness of breath Respiratory: Denies cough Gastrointestinal: Denies abdominal pain, Denies diarrhea, Denies nausea, Denies vomiting Musculoskeletal: Denies myalgias Integumentary: Denies pruritus, Denies rash Neurological: Denies numbness, Denies weakness Psychiatric: Denies anxiety, Denies depression Endocrine: Denies fatigue, Denies weight change Past Medical History Past Medical History: No Reported History History of Any Multi-Drug Resistant Organisms: None Reported Past Surgical History: No Surgical Hx Reported Past Anesthesia/Blood Transfusion Reactions: Unable to Obtain Additional Past Anesthesia/Blood Transfusion Reaction / Comm: Pt has never had anesthesia. Past Psychological History: ADD/ADHD, Anxiety, Depression, Panic Disorder Smoking Status: Current every day smoker Past Alcohol Use History: Rare Past Drug Use History: None Reported - Past Family History Father Family Medical History: Coronary Artery Disease (CAD), Hypertension, Renal Disease Additional Family Medical History / Comment(s): Father has CKD and they are talking of starting him on dialysis. Mother Family Medical History: Cancer Additional Family Medical History / Comment(s): Mother of breast cancer with mets. Medications and Allergies Home Medications Medication Instructions Recorded Confirmed Type No Known Home Medications [No 01/06/18 01/06/18 History Known Home Medications] Allergies Allergy/AdvReac Type Severity Reaction Status Date / Time No Known Allergies Allergy Verified 01/06/18 08:23 Physical Exam Vitals: Vital Signs Temp Pulse Pulse Resp BP BP Pulse Ox 01/07/18 14:34 98.3 F 92 16 119/82 96 01/07/18 08:18 98.4 F 86 16 118/74 93 L 01/07/18 01:30 97.5 F L 86 16 100/67 92 L 01/06/18 21:00 98.3 F 84 16 117/74 92 L 01/06/18 17:50 97.9 F 83 20 135/88 97 Intake and Output 01/07/18 01/07/18 01/07/18 06:59 14:59 22:59 Intake Total 1100 900 Balance 1100 900 Intake: Intake, IV Titration 1100 800 Amount Sodium Chloride 0.9% 1, 1100 800 000 ml @ 100 mls/hr IV . Q10H [facility] Rx#:[id number] Oral 100 Other: Voiding Method Toilet Toilet # Voids 1 - Constitutional General appearance: no acute distress - EENT Eyes: EOMI - Neck Neck: no lymphadenopathy - Gastrointestinal General gastrointestinal: no organomegaly, soft, no tenderness Results CBC & Chem 7: 01/07/18 14:06 01/07/18 14:06 Labs: Abnormal Lab Results - Last 24 Hours (Table) 01/07/18 01/07/18 Range/Units 14:06 14:06 Eosinophils # 1.0 H (0-0.7) k/uL Glucose 118 H (74-99) mg/dL Chest x-ray: report reviewed CT scan - abdomen: report reviewed CT scan - chest: report reviewed CT scan - pelvis: report reviewed Assessment and Plan (1) Abdominal pain Narrative/Plan: 1. Unclear etiology of the nonspecific findings found on CT scan. Will order further work-up with CT scan of chest, LDH, and RA. However, the findings do not explain his symptoms, as the findings are in the LUQ, while the pain in the lower quadrants. 2. With location of these findings, biopsy is not able to be done, would recommend a follow-up CT abdomen in 3 months to reassess for change. Status: Acute Code(s): R10.9 - UNSPECIFIED ABDOMINAL PAIN SNOMED Code(s): 35683944
== END 2018-01-08 14:09 | disposition home or self-care (01) ==
LOC: EC 07:33 → 4MS4W 10:34 → 3SUR 15:51
PROVIDERS: ADMIT Internal Medicine; ATTEND Internal Medicine
DX: R10.9 Unspecified abdominal pain (principal); R11.2 Nausea with vomiting, unspecified; D72.829 Elevated white blood cell count, unspecified; F32.9 Major depressive disorder, single episode, unspecified; R45.851 Suicidal ideations; R63.0 Anorexia; R63.4 Abnormal weight loss; F90.9 Attention-deficit hyperactivity disorder, unspecified type; F41.0 Panic disorder [episodic paroxysmal anxiety]; F17.210 Nicotine dependence, cigarettes, uncomplicated; Z82.49 Family history of ischemic heart disease and other diseases of the circulatory system; Z80.3 Family history of malignant neoplasm of breast; Z84.1 Family history of disorders of kidney and ureter
CPT/HCPCS: 36415; 71046; 71260; 74177; 80053; 80074; 80306; 80320; 81003; 82150; 82550; 82553; 83605; 83615; 83690; 84484; 85025; 85652; 86038; 86431; 93005; 96361; 96374; 96375; 96376; 99285

== ENCOUNTER → 2018-01-13 | Outpatient (CLI) | payer OTHER ==
[2018-01-13 19:30] LABS: Basophils # (A) 0.1 k/uL (0-0.2); Basophils % (A) 1 %; Eosinophils # (A) 0.9 k/uL (0-0.7); Eosinophils % (A) 9 %; HCT 48.9 % (39.0-53.0); HGB 17.4 gm/dL (13.0-17.5); Lymphocytes # (A) 2.7 k/uL (1.0-4.8); Lymphocytes % (A) 25 %; MCH 31.3 pg (25.0-35.0); MCHC 35.6 g/dL (31.0-37.0); Mean Platelet Volume 7.8; Monocytes # (A) 0.5 k/uL (0-1.0); Monocytes % (A) 4 %; Neutrophils # (A) 6.6 k/uL (1.3-7.7); Neutrophils % (A) 60 %; Platelet Count 295 k/uL (150-450); RBC 5.56 m/uL (4.30-5.90); RDW 12.7 % (11.5-15.5)
== END | disposition home or self-care (01) ==
LOC: MMGSC 14:35
PROVIDERS: ATTEND Family Medicine
DX: D72.829 Elevated white blood cell count, unspecified (principal)
CPT/HCPCS: 36415; 85025

== ENCOUNTER 2018-02-03 08:37 | Day surgery (SDC) | payer OTHER ==
[2018-02-01 16:08] VITALS: BMI 28.1
[~2018-02-03 08:37] MED LIST: LACTATED RINGERS 1,000 ML IV SCH; LIDOCAINE 1% 20 ML VIAL (10MG/ML) FOR IV START INTRADERMA PRN
[2018-02-03 08:52] VITALS: TEMP 97.2
[2018-02-03] MEDS ORDERED: LIDOCAINE 1% INJ 10MG/ML (20 ML MDV) ONE (09:36)
[2018-02-03] MEDS ORDERED: PROPOFOL 10 MG/ML 20 ML VIAL IV ONE (09:36)
--- NOTE | 2018-02-03 09:48 | P.GSHP ---
History of Present Illness H&P Date: 02/03/18 Chief Complaint: Colitis, abdominal pain This a 43-year-old male who presents today for EGD colonoscopy. Patient's had complaints of abdominal pain and colitis. He had a recent hospital admission for similar symptoms. The patient has had some change in bowel habit with frequent stools. Past Medical History Past Medical History: No Reported History Additional Past Medical History / Comment(s): ABD PAIN, VOMITING LAST MONTH; ABD PAIN ONGOING. RT ING HERNIA. OCC HEARTBURN. 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 Smoking Status: Current every day smoker - Past Family History Father Family Medical History: Coronary Artery Disease (CAD), Hypertension, Myocardial Infarction ([place]), Renal Disease Additional Family Medical History / Comment(s): Father has CKD and they are talking of starting him on dialysis. Mother Family Medical History: Cancer Additional Family Medical History / Comment(s): Mother of breast cancer with mets. Medications and Allergies Home Medications Medication Instructions Recorded Confirmed Type Acetaminophen [Tylenol Extra 500 mg PO Q4H PRN 02/01/18 02/03/18 History Strength] Calcium Carbonate [Tums] 500 - 1,000 mg PO QID PRN 02/01/18 02/03/18 History Allergies Allergy/AdvReac Type Severity Reaction Status Date / Time No Known Allergies Allergy Verified 02/03/18 08:43 Surgical - Exam Vital Signs Temp Pulse Resp BP Pulse Ox 97.2 F L 94 18 119/72 97 02/03/18 08:50 02/03/18 08:50 02/03/18 08:50 02/03/18 08:50 02/03/18 08:50 - General well developed, no distress - Eyes PERRL - ENT normal pinna - Neck no masses - Respiratory normal expansion - Cardiovascular Rhythm: regular - Abdomen Abdomen: soft, non tender Assessment and Plan Assessment: Colitis, dull pain. We'll perform EGD and colonoscopy.
--- NOTE | 2018-02-03 10:11 | P.OP ---
Date of Procedure: 02/03/18 Preoperative Diagnosis: Colitis Abdominal pain Postoperative Diagnosis: Antral gastritis Small hiatal hernia Mild esophagitis Normal colon with sigmoid colon biopsy pathology pending Procedure(s) Performed: EGD Colonoscopy Anesthesia: MAC Surgeon: Angelito Ashraf Pathology: other (Antrum, esophagus) Condition: stable Disposition: PACU Description of Procedure: The patient's placed on the endoscopy table in the lateral position. He received IV sedation. The gastro-/oropharynx passed in the esophagus and into the stomach. Scope was then placed through the pylorus. First and second portion of duodenum appeared normal. Scope was then brought back the antrum and this was mildly inflamed. A biopsies performed. The scope was then retroflexed and remainder stomach appeared normal. There was a small hiatal hernia. The GE junction was at 40 cm.. The distal esophagus appeared mildly inflamed a biopsies performed. The proximal esophagus appeared normal. Scope was withdrawn from the patient.
[2018-02-03 10:19] VITALS: BP 94/65; PULSE 6; RESP 16
--- NOTE | 2018-02-08 07:00 | CDI ---
Date: 01/1718 CDS/Lift Driver Name: Rajwinder Thomas Phone: If any questions, call [employer] Energy Manager at [phone] Patient Name: Keith Garrido Admit Date: 02/03/18 Discharge Date: 02/03/18 ATTENTION: The [facility] Coding Staff appreciate your assistance in clarifying documentation. Please respond to the clarification below the line at the bottom and electronically sign. The [facility] Coding staff will review the response and follow-up if needed. Please note: Queries are made part of the Legal Health Record. If you have any questions, please contact the Energy Manager. Dear Dr. Ashraf Please provide clarification on the colon procedure performed. Colonoscopy is listed on the Procedure Note under Procedure(s) Performed but there is no dictation in the body of the report. Thank you for your kind consideration. The operative note has been revised. JUAN
== END 2018-02-03 10:46 | disposition home or self-care (01) ==
LOC: ORWHC2ENDO 08:37
PROVIDERS: ATTEND Surgery
DX: K29.50 Unspecified chronic gastritis without bleeding (principal); K20.9 Esophagitis, unspecified; K44.9 Diaphragmatic hernia without obstruction or gangrene; K52.9 Noninfective gastroenteritis and colitis, unspecified; F17.210 Nicotine dependence, cigarettes, uncomplicated; F32.9 Major depressive disorder, single episode, unspecified
CPT/HCPCS: 88305; 45380; 43239; J2001; J2704

== ENCOUNTER → 2018-02-18 | Outpatient (CLI) | payer OTHER | END | disposition home or self-care (01) | LOC: MMGSC 10:50 | PROVIDERS: ATTEND Family Medicine | DX: R82.90 Unspecified abnormal findings in urine (principal) | CPT/HCPCS: 87086 ==

== ENCOUNTER 2018-07-18 08:26 | Emergency (ER) | payer OTHER ==
[2018-07-18 08:34] VITALS: RESP 18
[2018-07-18] MEDS ORDERED: MORPHINE SULFATE 4 MG/ML SYRINGE IV STA (08:46)
[2018-07-18] MEDS ORDERED: SODIUM CHLORIDE 0.9% 1,000 ML IV STA (08:46)
[2018-07-18] MEDS ORDERED: KETOROLAC 30 MG/ML 1 ML VIAL IVP STA (08:46)
[2018-07-18] MEDS ORDERED: ONDANSETRON 4 MG/2 ML VIAL IVP STA (08:46)
[2018-07-18] MEDS ORDERED: DICYCLOMINE 20 MG TAB PO STA (08:47)
--- NOTE | 2018-07-18 09:02 | ED ---
Abdominal Pain HPI - General Chief Complaint: Abdominal Pain Stated Complaint: Abd.pain Time Seen by Provider: 07/18/18 08:35 Source: patient, RN notes reviewed, old records reviewed Mode of arrival: ambulatory Limitations: no limitations - History of Present Illness Initial Comments: 43-year-old male presents emergency Department chief complaint of abdominal pain. Patient states this has been ongoing for last 7-8 months. Patient states that initially started in November states that he was admitted to the hospital in December with no major findings. Patient states that there are some abnormal CT findings he was evaluated by surgery, oncology, GI and was told everything looks fine. Patient was recommended to have follow-up CT though he did not. Patient states that he is never certain any medication. He did follow -up for his colonoscopy and EGD with no acute findings with Dr. maxwell. Patient states that [id number] medications do not help the pain at this time. He denies any illicit drug use. Patient states the pain starts in his epigastric region, radiates down to his lower abdomen and to his flank region. He has no change in bowel habits denies diarrhea, constipation, melena, hematochezia, hematemesis coffee-ground emesis. He denies any dysuria or hematuria. He did have cytology of his urine which was negative for malignant cells. - Related Data Previous Rx's Medication Instructions Recorded Dicyclomine [Bentyl] 20 mg PO TID #30 tablet 07/18/18 Omeprazole 40 mg PO DAILY #14 capsule. 07/18/18 Allergies Allergy/AdvReac Type Severity Reaction Status Date / Time No Known Allergies Allergy Verified 07/18/18 08:50 Review of Systems ROS Statement: Those systems with pertinent positive or pertinent negative responses have been documented in the HPI. ROS Other: All systems not noted in ROS Statement are negative. Past Medical History Past Medical History: No Reported History Additional Past Medical History / Comment(s): ABD PAIN, VOMITING LAST MONTH; ABD PAIN ONGOING. RT ING HERNIA. OCC HEARTBURN. 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 Past Psychological History: ADD/ADHD, Anxiety, Depression, Panic Disorder Smoking Status: Current every day smoker Past Alcohol Use History: Rare Past Drug Use History: None Reported - Past Family History Father Family Medical History: Coronary Artery Disease (CAD), Hypertension, Myocardial Infarction ([place]), Renal Disease Additional Family Medical History / Comment(s): Father has CKD and they are talking of starting him on dialysis. Mother Family Medical History: Cancer Additional Family Medical History / Comment(s): Mother of breast cancer with mets. General Exam Limitations: no limitations General appearance: alert, in no apparent distress Head exam: Present: atraumatic, normocephalic, normal inspection Neck exam: Present: normal inspection, full ROM. Absent: tenderness, meningismus, lymphadenopathy Respiratory exam: Present: normal lung sounds bilaterally. Absent: respiratory distress, wheezes, rales, rhonchi, stridor Cardiovascular Exam: Present: regular rate, normal rhythm, normal heart sounds. Absent: systolic murmur, diastolic murmur, rubs, gallop, clicks GI/Abdominal exam: Present: soft, tenderness (Generalized mild to moderate), normal bowel sounds. Absent: distended, guarding, rebound, rigid Back exam: Present: full ROM, CVA tenderness (R), CVA tenderness (L). Absent: paraspinal tenderness, vertebral tenderness Neurological exam: Present: alert, oriented X3, CN II-XII intact Skin exam: Present: warm, dry, intact, normal color. Absent: rash Course Vital Signs 07/18/18 08:31 Temperature 98 F Pulse Rate 95 Respiratory 18 Rate Blood Pressure 128/81 O2 Sat by Pulse 97 Oximetry Medical Decision Making - Medical Decision Making 43-year-old male presents emergency Department chief complaint abdominal pain. Patient has been having ongoing issues for several months. Patient had extensive workup. I did review prior labs, imaging. Patient had repeat lab work, repeat imaging with only signs of some hepatitis or fatty liver disease. Patient was screened for hepatitis in the past which was negative. Patient has normal LFTs. Patient is advised to follow-up with his PCP to referred to further specialist and return for any worsening symptoms. Patient did say that he feels improved after medications here. - Lab Data Result diagrams: 07/18/18 08:55 07/18/18 08:55 Lab Results 07/18/18 07/18/18 07/18/18 Range/Units 08:55 08:55 08:55 WBC 10.9 H (3.8-10.6) k/uL RBC 5.65 (4.30-5.90) m/uL Hgb 17.4 (13.0-17.5) gm/dL Hct 51.6 (39.0-53.0) % MCV 91.3 (80.0-100.0) fL MCH 30.8 (25.0-35.0) pg MCHC 33.7 (31.0-37.0) g/dL RDW 12.8 (11.5-15.5) % Plt Count 243 (150-450) k/uL Neutrophils % 68 % Lymphocytes % 19 % Monocytes % 4 % Eosinophils % 7 % Basophils % 1 % Neutrophils # 7.4 (1.3-7.7) k/uL Lymphocytes # 2.1 (1.0-4.8) k/uL Monocytes # 0.5 (0-1.0) k/uL Eosinophils # 0.7 (0-0.7) k/uL Basophils # 0.1 (0-0.2) k/uL PT (9.0-12.0) sec INR (<1.2) APTT (22.0-30.0) sec Sodium 140 (137-145) mmol/L Potassium 4.4 (3.5-5.1) mmol/L Chloride 109 H (98-107) mmol/L Carbon Dioxide 22 (22-30) mmol/L Anion Gap 9 mmol/L BUN 17 (9-20) mg/dL Creatinine 0.70 (0.66-1.25) mg/dL Est GFR (CKD-EPI)AfAm >90 (>60 ml/min/1.73 sqM) Est GFR (CKD-EPI)NonAf >90 (>60 ml/min/1.73 sqM) Glucose 152 H (74-99) mg/dL Plasma Lactic Acid Blake 2.2 H* (0.7-2.0) mmol/L Calcium 9.5 (8.4-10.2) mg/dL Total Bilirubin 0.4 (0.2-1.3) mg/dL AST 23 (17-59) U/L ALT 35 (21-72) U/L Alkaline Phosphatase 71 (38-126) U/L Total Protein 7.0 (6.3-8.2) g/dL Albumin 4.1 (3.5-5.0) g/dL Amylase 69 (30-110) U/L Lipase 98 (23-300) U/L Urine Color Urine Appearance (Clear) Urine pH (5.0-8.0) Ur Specific [place] (1.001-1.035) Urine Protein (Negative) Urine Glucose (UA) (Negative) Urine Ketones (Negative) Urine Blood (Negative) Urine Nitrite (Negative) Urine Bilirubin (Negative) Urine Urobilinogen (<2.0) mg/dL Ur Leukocyte Esterase (Negative) 07/18/18 07/18/18 Range/Units 08:55 08:55 WBC (3.8-10.6) k/uL RBC (4.30-5.90) m/uL Hgb (13.0-17.5) gm/dL Hct (39.0-53.0) % MCV (80.0-100.0) fL MCH (25.0-35.0) pg MCHC (31.0-37.0) g/dL RDW (11.5-15.5) % Plt Count (150-450) k/uL Neutrophils % % Lymphocytes % % Monocytes % % Eosinophils % % Basophils % % Neutrophils # (1.3-7.7) k/uL Lymphocytes # (1.0-4.8) k/uL Monocytes # (0-1.0) k/uL Eosinophils # (0-0.7) k/uL Basophils # (0-0.2) k/uL PT 9.7 (9.0-12.0) sec INR 1.0 (<1.2) APTT 26.0 (22.0-30.0) sec Sodium (137-145) mmol/L Potassium (3.5-5.1) mmol/L Chloride (98-107) mmol/L Carbon Dioxide (22-30) mmol/L Anion Gap mmol/L BUN (9-20) mg/dL Creatinine (0.66-1.25) mg/dL Est GFR (CKD-EPI)AfAm (>60 ml/min/1.73 sqM) Est GFR (CKD-EPI)NonAf (>60 ml/min/1.73 sqM) Glucose (74-99) mg/dL Plasma Lactic Acid [place] (0.7-2.0) mmol/L Calcium (8.4-10.2) mg/dL Total Bilirubin (0.2-1.3) mg/dL AST (17-59) U/L ALT (21-72) U/L Alkaline Phosphatase (38-126) U/L Total Protein (6.3-8.2) g/dL Albumin (3.5-5.0) g/dL Amylase (30-110) U/L Lipase (23-300) U/L Urine Color Yellow Urine Appearance Clear (Clear) Urine pH 5.5 (5.0-8.0) Ur Specific [place] 1.018 (1.001-1.035) Urine Protein Negative (Negative) Urine Glucose (UA) Negative (Negative) Urine Ketones Negative (Negative) Urine Blood Negative (Negative) Urine Nitrite Negative (Negative) Urine Bilirubin Negative (Negative) Urine Urobilinogen <2.0 (<2.0) mg/dL Ur Leukocyte Esterase Negative (Negative) Disposition Clinical Impression: Abdominal pain Disposition: HOME SELF-CARE Condition: Stable Instructions: Abdominal Pain (ED) Additional Instructions: Please return to the Emergency Department if symptoms worsen or any other concerns. Prescriptions: Dicyclomine [Bentyl] 20 mg PO TID #30 tablet Omeprazole 40 mg PO DAILY #14 capsule.dr Is patient prescribed a controlled substance at d/c from ED?: No Referrals: Jeannine Reina MD [Primary Care Provider] - 1-2 days Time of Disposition: 10:37
[2018-07-18 09:33] LABS: Appearance,Urine Clear (Clear); Bilirubin,Urine Negative (Negative); Blood,Urine Negative (Negative); Color,Urine Yellow; Glucose,Urine (UA) Negative (Negative); Ketones,Urine Negative (Negative); Leukocyte Esterase,Urine Negative (Negative); Nitrite,Urine Negative (Negative); PH, Urine 5.5 (5.0-8.0); Protein,Urine Negative (Negative); Specific Gravity,Urine 1.018 (1.001-1.035); Urobilinogen,Urine <2.0 mg/dL (<2.0)
[2018-07-18 09:38] LABS: ALT 35 U/L (21-72); AST 23 U/L (17-59); Albumin 4.1 g/dL (3.5-5.0); Alkaline Phosphatase 71 U/L (38-126); Amylase 69 U/L (30-110); Anion Gap 9 mmol/L; Blood Urea Nitrogen 17 mg/dL (9-20); Calcium 9.5 mg/dL (8.4-10.2); Carbon Dioxide 22 mmol/L (22-30); Chloride 109 mmol/L (98-107); Glucose 152 mg/dL (74-99); Lipase 98 U/L (23-300); Potassium 4.4 mmol/L (3.5-5.1); Sodium 140 mmol/L (137-145); Total Bilirubin 0.4 mg/dL (0.2-1.3)
[2018-07-18 09:40] LABS: Basophils # (A) 0.1 k/uL (0-0.2); Basophils % (A) 1 %; Eosinophils # (A) 0.7 k/uL (0-0.7); Eosinophils % (A) 7 %; HCT 51.6 % (39.0-53.0); HGB 17.4 gm/dL (13.0-17.5); Lymphocytes # (A) 2.1 k/uL (1.0-4.8); Lymphocytes % (A) 19 %; MCH 30.8 pg (25.0-35.0); MCHC 33.7 g/dL (31.0-37.0); MCV 91.3 fL (80.0-100.0); Mean Platelet Volume 7.4; Monocytes # (A) 0.5 k/uL (0-1.0); Monocytes % (A) 4 %; Neutrophils # (A) 7.4 k/uL (1.3-7.7); Neutrophils % (A) 68 %; Platelet Count 243 k/uL (150-450); RBC 5.65 m/uL (4.30-5.90); RDW 12.8 % (11.5-15.5); WBC 10.9 k/uL (3.8-10.6)
[2018-07-18 09:45] LABS: Prothrombin Time 9.7 sec (9.0-12.0)
--- NOTE | 2018-07-18 10:02 | CT ---
EXAMINATION TYPE: CT abdomen pelvis w con DATE OF EXAM: 07/18/2018 COMPARISON: 01/06/2018 HISTORY: pain CT DLP: 894.5 mGycm Automated exposure control for dose reduction was used. CONTRAST: CT scan of the abdomen pelvis is performed with IV Contrast, patient injected with 100 mL of Isovue 3 00. FINDINGS- LUNG BASES- No significant abnormality is appreciated. Calcified granuloma previously reported is no t included in the [id number]. LIVER/GB-liver slightly heterogeneous in attenuation which can be associated with fatty infiltration or hepatocellular disease correlate clinically. Tiny hypodensity measuring 5 mm or less within the le ft lobe of the liver anteriorly is too small to characterize.. PANCREAS- No gross abnormality is seen. SPLEEN-small splenule noted. ADRENALS-stable nonspecific thickening to the adrenal glands. KIDNEYS/BLADDER- no hydronephrosis or nephrolithiasis. Small hypodensity within the upper pole the le ft kidney stable from previous exam. BOWEL-bowel gas pattern nonspecific with no obstruction. Retained fecal debris throughout the colon l imits its evaluation. Scattered diverticula suspected.. Normal appendix. LYMPH NODES- No greater than 1cm abdominal or pelvic lymph nodes areappreciated. OSSEOUS STRUCTURES-hypertrophic and degenerative change of the spine. Multilevel facet arthropathy. OTHER- intramuscular lipoma along the left flank incidentally noted. Atherosclerotic changes aorta. Tiny periumbilical fat-containing hernia. Fat-containing bilateral inguinal hernias. IMPRESSION- 1. Correlate for hepatocellular disease or fatty infiltration. 2. Stable left renal lesion unchanged from prior exam.
[2018-07-18 11:17] VITALS: BP 110/64; PULSE 74; TEMP 97.5
== END 2018-07-18 11:17 | disposition home or self-care (01) ==
LOC: EC 08:26
DX: R10.9 Unspecified abdominal pain (principal); F17.200 Nicotine dependence, unspecified, uncomplicated
CPT/HCPCS: 99284; 96374; 96375; 96361; 36415; 80053; 82150; 83605; 83690; 85025; 85610; 85730; 81003; 74177; J2405; J1885; Q9967

== ENCOUNTER → 2022-06-24 | Outpatient (CLI) | payer OTHER ==
--- NOTE | 2022-06-24 08:18 | US ---
EXAMINATION TYPE: US abdomen comp/pelvis limited DATE OF EXAM: 06/24/2022 COMPARISON: CT 07/18/18 CLINICAL HISTORY: R15.2 Fecal urgency. Abdominal pain and fecal urgency EXAM MEASUREMENTS: Liver Length: 16.6 cm Gallbladder Wall: 0.3 cm CBD: 0.5 cm Spleen: 11.7 cm Right Kidney: 11.9 x 4.6 x 4.6 cm Left Kidney: 12.3 x 5.5 x 6.3 cm Post Void Residual: 150.8 mL Pancreas: Obscured by bowel gas Liver: Increased attenuation Gallbladder: Low level echoes noted in neck area, no obvious stones seen CBD: wnl Spleen: No obvious abnormalities Right Kidney: Mild hydronephrosis Left Kidney: Mild hydronephrosis, anechoic cystic area seen in superior pole measuring 2.1 x 1.7 x 1 9 cm Upper IVC: Appears wnl Abd Aorta: Appears wnl Proximal: 1.8 x 2.5 cm Mid: 1.7 x 1.7 cm Distal: 1.5 x 1.6 cm NARCISO: 1.3 x 0.9 cm JASVIR: 1.4 x 1.0 cm Bladder: Anechoic, distended Bilateral Jets Seen Yes Normal Post Void Residual (normal less than 50ml) No Exam limited due to increased bowel gas IMPRESSION: 1. Mild bilateral hydronephrosis of uncertain etiology left greater than right.
== END | disposition home or self-care (01) ==
LOC: RADUSWWP 06:56
PROVIDERS: ATTEND Family Medicine
DX: N13.30 Unspecified hydronephrosis (principal)
CPT/HCPCS: 76700; 76857

== ENCOUNTER 2022-07-07 10:22 | Emergency (ER) | payer OTHER ==
[2022-07-07 11:16] VITALS: BP 147/88; PULSE 91; RESP 20; TEMP 97.7
[2022-07-07 15:49] LABS: Basophils # (A) 0.2 k/uL (0-0.2); Basophils % (A) 1 %; Eosinophils # (A) 0.7 k/uL (0-0.7); Eosinophils % (A) 5 %; HCT 53.4 % (39.0-53.0); HGB 17.5 gm/dL (13.0-17.5); Lymphocytes % (A) 22 %; MCH 30.4 pg (25.0-35.0); MCHC 32.8 g/dL (31.0-37.0); MCV 92.7 fL (80.0-100.0); Mean Platelet Volume 7.7; Monocytes # (A) 0.5 k/uL (0-1.0); Monocytes % (A) 3 %; Neutrophils # (A) 9.2 k/uL (1.3-7.7); Neutrophils % (A) 67 %; Platelet Count 233 k/uL (150-450); RBC 5.76 m/uL (4.30-5.90); RDW 12.5 % (11.5-15.5); WBC 13.6 k/uL (3.8-10.6)
[2022-07-07 16:00] LABS: Appearance,Urine Clear (Clear); Bilirubin,Urine Negative (Negative); Blood,Urine Small (Negative); Color,Urine Yellow; Glucose,Urine (UA) Negative (Negative); Ketones,Urine Negative (Negative); Leukocyte Esterase,Urine Negative (Negative); Mucus,Urine Rare /hpf; Nitrite,Urine Negative (Negative); PH, Urine 5.5 (5.0-8.0); Protein,Urine Negative (Negative); RBC,Urine 3 /hpf (0-5); Specific Gravity,Urine 1.016 (1.001-1.035); Urobilinogen,Urine <2.0 mg/dL (<2.0); WBC,Urine <1 /hpf (0-5)
[2022-07-07 16:01] LABS: ALT 22 U/L (4-49); AST 21 U/L (17-59); African American GFR (CKD) >90 (>60 ml/min/1.73 sqM); Albumin 4.6 g/dL (3.5-5.0); Alkaline Phosphatase 80 U/L (38-126); Amylase 80 U/L (30-110); Anion Gap 13 mmol/L; Blood Urea Nitrogen 18 mg/dL (9-20); Calcium 9.4 mg/dL (8.4-10.2); Carbon Dioxide 23 mmol/L (22-30); Chloride 102 mmol/L (98-107); Glucose 158 mg/dL (74-99); Lipase 116 U/L (23-300); Non-African American GFR(CKD) >90 (>60 ml/min/1.73 sqM); Potassium 4.1 mmol/L (3.5-5.1); Sodium 138 mmol/L (137-145); Total Bilirubin 0.4 mg/dL (0.2-1.3); Total Protein 7.3 g/dL (6.3-8.2)
--- NOTE | 2022-07-07 16:08 | CT ---
EXAMINATION TYPE: CT abdomen pelvis w con DATE OF EXAM: 07/07/2022 COMPARISON: CT abdomen and pelvis report 2018. Direct comparison cannot be performed due to PACS down time. HISTORY: PAIN, known right inguinal hernia. CT DLP: 1261.1 mGycm, Automated Exposure Control for Dose Reduction was Utilized. CONTRAST: CT scan of the abdomen and pelvis is performed with oral and with IV Contrast, patient injected with 100 mL of Isovue 300. FINDINGS: LUNG BASES: Partial visualization of a partially calcified roughly 7 mm nodule right lower lobe axial image 1. LIVER/GB: Liver is diffusely hypodense. No biliary dilatation PANCREAS: No significant abnormality is seen. SPLEEN: No significant abnormality is seen. ADRENALS: Slight thickening to left adrenal gland favoring benign lipid rich hyperplasia. KIDNEYS: There is 1.6 cm benign-appearing thin-walled cyst medially upper pole left kidney axial imag e 19. Symmetric cortical medullary uptake and excretion without hydronephrosis seen bilaterally. BOWEL: No significant abnormality is seen. PROSTATE/SEMINAL VESICLES: No gross abnormality seen. LYMPH NODES: No greater than 1cm abdominal or pelvic lymph nodes are appreciated. OSSEOUS STRUCTURES: Facet arthropathy lower lumbar levels. OTHER: Moderate to large size right and small size left fat-containing bilateral inguinal hernias. No suspicious fluid or fat stranding noted. Mild to moderate peripheral plaque distal abdominal aorta e xtends into iliac branch vessels IMPRESSION: Moderate to large sized fat-containing right inguinal hernia. No Acute findings are evide nt.
--- NOTE | 2022-07-07 16:46 | ED ---
General Adult HPI - General Chief complaint: Abdominal Pain Stated complaint: abd pain Time Seen by Provider: 07/07/22 15:00 Source: patient, RN notes reviewed, old records reviewed Mode of arrival: ambulatory Limitations: no limitations - History of Present Illness Initial comments: This is a 47-year-old male who presents emergency Department complaining of chronicabdominal pain for the last 4 years. Patient states he recently saw his primary medical care doctor and they ordered a CAT scan for Wednesday but the patient states he didn't want awake is the pain continues. Patient denies any nausea vomiting diarrhea. Patient denies any fever chills. Patient denies any dysuria hematuria urinary frequency. Patient states the pain over the last few days she's been same pain as he is had for the last 4 years. - Related Data Previous Rx's Medication Instructions Recorded Dicyclomine [Bentyl] 20 mg PO TID #30 tablet 07/18/18 Omeprazole 40 mg PO DAILY #14 capsule. 07/18/18 Allergies Allergy/AdvReac Type Severity Reaction Status Date / Time No Known Allergies Allergy Verified 07/07/22 11:16 Review of Systems ROS Statement: Those systems with pertinent positive or pertinent negative responses have been documented in the HPI. ROS Other: All systems not noted in ROS Statement are negative. Past Medical History Past Medical History: No Reported History Additional Past Medical History / Comment(s): ABD PAIN, VOMITING LAST MONTH; ABD PAIN ONGOING. RT ING HERNIA. OCC HEARTBURN. 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 Past Psychological History: ADD/ADHD, Anxiety, Depression, Panic Disorder Smoking Status: Never smoker Past Alcohol Use History: Rare Past Drug Use History: None Reported - Past Family History Father Family Medical History: Coronary Artery Disease (CAD), Hypertension, Myocardial Infarction ([place]), Renal Disease Additional Family Medical History / Comment(s): Father has CKD and they are talking of starting him on dialysis. Mother Family Medical History: Cancer Additional Family Medical History / Comment(s): Mother of breast cancer with mets. General Exam - General Exam Comments Initial Comments: GENERAL: Patient is well-developed and well-nourished. Patient is nontoxic and well- hydrated and is in no acute distress. ENT: Neck is soft and supple. No significant lymphadenopathy is noted. Oropharynx is clear. Moist mucous membranes. Neck has full range of motion without eliciting any pain. EYES: The sclera were anicteric and conjunctiva were pink and moist. Extraocular movements were intact and pupils were equal round and reactive to light. Eyelids were unremarkable. PULMONARY: Unlabored respirations. Good breath sounds bilaterally. No audible rales rho nchi or wheezing was noted. CARDIOVASCULAR: There is a regular rate and rhythm without any murmurs gallops or rubs. ABDOMEN: Patient has no rebound or guarding however he is tender diffusely mildly SKIN: Skin is clear with no lesions or rashes and otherwise unremarkable. NEUROLOGIC: Patient is alert and oriented x3. Cranial nerves II through XII are grossly intact. Motor and sensory are also intact. Normal speech, volume and content. Symmetrical smile. intact. MUSCULOSKELETAL: Normal extremities with adequate strength and full range of motion. LYMPHATICS: No significant lymphadenopathy is noted PSYCHIATRIC: Normal psychiatric evaluation. Limitations: no limitations Course Vital Signs 07/07/22 11:13 Temperature 97.7 F Pulse Rate 91 Respiratory 20 Rate Blood Pressure 147/88 O2 Sat by Pulse 98 Oximetry Medical Decision Making - Lab Data Result diagrams: 07/07/22 15:33 07/07/22 15:33 Lab Results 07/07/22 07/07/22 07/07/22 Range/Units 15:33 15:33 15:34 WBC 13.6 H (3.8-10.6) k/uL RBC 5.76 (4.30-5.90) m/uL Hgb 17.5 (13.0-17.5) gm/dL Hct 53.4 H (39.0-53.0) % MCV 92.7 (80.0-100.0) fL MCH 30.4 (25.0-35.0) pg MCHC 32.8 (31.0-37.0) g/dL RDW 12.5 (11.5-15.5) % Plt Count 233 (150-450) k/uL MPV 7.7 Neutrophils % 67 % Lymphocytes % 22 % Monocytes % 3 % Eosinophils % 5 % Basophils % 1 % Neutrophils # 9.2 H (1.3-7.7) k/uL Lymphocytes # 3.0 (1.0-4.8) k/uL Monocytes # 0.5 (0-1.0) k/uL Eosinophils # 0.7 (0-0.7) k/uL Basophils # 0.2 (0-0.2) k/uL Sodium 138 (137-145) mmol/L Potassium 4.1 (3.5-5.1) mmol/L Chloride 102 (98-107) mmol/L Carbon Dioxide 23 (22-30) mmol/L Anion Gap 13 mmol/L BUN 18 (9-20) mg/dL Creatinine 0.95 (0.66-1.25) mg/dL Est GFR (CKD-EPI)AfAm >90 (>60 ml/min/1.73 sqM) Est GFR (CKD-EPI)NonAf >90 (>60 ml/min/1.73 sqM) Glucose 158 H (74-99) mg/dL Calcium 9.4 (8.4-10.2) mg/dL Total Bilirubin 0.4 (0.2-1.3) mg/dL AST 21 (17-59) U/L ALT 22 (4-49) U/L Alkaline Phosphatase 80 (38-126) U/L Total Protein 7.3 (6.3-8.2) g/dL Albumin 4.6 (3.5-5.0) g/dL Amylase 80 (30-110) U/L Lipase 116 (23-300) U/L Urine Color Yellow Urine Appearance Clear (Clear) Urine pH 5.5 (5.0-8.0) Ur Specific [place] 1.016 (1.001-1.035) Urine Protein Negative (Negative) Urine Glucose (UA) Negative (Negative) Urine Ketones Negative (Negative) Urine Blood Small H (Negative) Urine Nitrite Negative (Negative) Urine Bilirubin Negative (Negative) Urine Urobilinogen <2.0 (<2.0) mg/dL Ur Leukocyte Esterase Negative (Negative) Urine RBC 3 (0-5) /hpf Urine WBC <1 (0-5) /hpf Urine Mucus Rare H (None) /hpf Disposition Clinical Impression: Chronic abdominal pain Disposition: HOME SELF-CARE Instructions (If sedation given, give patient instructions): Abdominal Pain (ED) Is patient prescribed a controlled substance at d/c from ED?: No Referrals: Jeannine Reina MD [Primary Care Provider] - 1-2 days Time of Disposition: 16:45
== END 2022-07-07 16:54 | disposition home or self-care (01) ==
LOC: EC 10:22
DX: K40.90 Unilateral inguinal hernia, without obstruction or gangrene, not specified as recurrent (principal)
CPT/HCPCS: 36415; 80053; 82150; 83690; 85025; 81001; 74177; 99284; Q9967

== ENCOUNTER 2024-06-08 13:06 | Emergency (ER) | payer OTHER | END 2024-06-08 13:58 | disposition home or self-care (01) | LOC: EC 13:06 | CPT/HCPCS: 99282 ==